=== PATIENT | female | born 1945 | race Caucasian/White ===

== ENCOUNTER 2019-10-18 11:35 | Inpatient (IN) | payer OTHER ==
[~2019-10-18] VITALS: Ht 160 cm; Wt 59.0 kg
[2019-10-18] MEDS ORDERED: PEPCID20 MG PO (12:16)
[2019-10-18] MEDS ORDERED: PROTONIX40 MG PO (12:16)
[2019-10-18] MEDS ORDERED: ATORVASTATIN CA40 MG PO (12:17)
[2019-10-18] MEDS ORDERED: LOTREL 10-20 M1 EACH PO (12:17)
--- NOTE | 2019-10-18 12:19 | NUR ---
PACIENTE REFIERE DOLOR ABDOMINAL, VOMITOS X1 DESDE JOSE MIGUEL LUEGO DE HACER INGERIDO ALIMENTOS. SE OBSERVA ALERTA, ORIENTADA X3, CONCIENTE. REFEIRE PADECER DE DIVERTICULOS.
--- NOTE | 2019-10-18 13:30 | NUR ---
PACIENTE ALERTA Y ORIENTADA X3 ES EVALUADA POR DR. MANUEL QUIEN ORDENA REALIZAR MUESTRA DE LABORATORIO CANALIZACION DE VENA ADMINISTRAR MEDICAMENTO Y AZEB CONTRASTE PARA CT ABDOMINO PELVICO, SE ORIENTA SOBRE ORDEN MEDICA SE EJECUTA ORDEN, SE ORIENTA A EMILY SOM CONTRASTE PARA CT.
--- NOTE | 2019-10-19 01:23 | NUR ---
SE ORIENTA PACIENTE SOBRE TRATAMIENTO MEDICO EL CUAL REFIERE ENTENDER, SE REALIZA MUESTRA DE SEFERINO DE FORMA ASEPTICA Y SE ADMINISTRA MEDICAMENTO SAUL ORDEN MEDICA. PACIENTE TOLERA INTERVENCION DEL RN.
--- NOTE | 2019-10-19 01:27 | NUR ---
SE ORIENTA PACIENTE SOBRE TRATAMIENTO MEDICO EL CUAL REFIERE REFIERE ENTENDER, SE ADMINISTRA MEDICAMENTO SAUL ORDEN MEDICA, EL PACIENTE TOLERA INTERVENCION DEL RN.
--- NOTE | 2019-10-19 07:59 | NUR ---
SE RECIBE PTE FEMENIA DE 74 YRS ALERTA CONCIENTE Y TRANQUILA EN CAMA CON BARANDAS ELEVADA. PTE PENDIENTE A MEDICO CONSULTOR LA CUAL SE MANTIENE NOTIFICADO DESDE EL TURNO ANTERIO Y SE LE DA SEGUIMIENTO. SE MANTIENE CON IVF PATENTE Y KWAN DE EDEMA.SE MANTIENE EN COMPANIA DE FAMILIAR.Y SE MANTIENE KWAN DE DOLOR. SE OBSERVA POR CAMBIOS.
== END 2019-11-05 19:30 | disposition home or self-care (01) | DRG 388 ==
LOC: ER 11:35 → SURG 10-19 11:27 → SEC-K 10-19 11:27 → SURG 10-19 15:56
PROVIDERS: ADMIT Colon & Rectal Surgery
PROC: BW21Y0Z Computerized Tomography (CT Scan) of Abdomen and Pelvis using Other Contrast, Unenhanced and Enhanced (ICD-10-PCS; 2019-10-19)
PROC: 3E0436Z Introduction of Nutritional Substance into Central Vein, Percutaneous Approach (ICD-10-PCS; 2019-10-19)
PROC: 02HV33Z Insertion of Infusion Device into Superior Vena Cava, Percutaneous Approach (ICD-10-PCS; 2019-10-20)
PROC: 4A033R1 Measurement of Arterial Saturation, Peripheral, Percutaneous Approach (ICD-10-PCS; 2019-10-24)
PROC: 4A12X4Z Monitoring of Cardiac Electrical Activity, External Approach (ICD-10-PCS; 2019-10-24)
PROC: 0W9J30Z Drainage of Pelvic Cavity with Drainage Device, Percutaneous Approach (ICD-10-PCS; principal; 2019-10-25)
DX: K56.690 Other partial intestinal obstruction (principal); K65.8 Other peritonitis; K57.21 Diverticulitis of large intestine with perforation and abscess with bleeding; J98.11 Atelectasis; K92.1 Melena; K63.2 Fistula of intestine; B96.29 Other Escherichia coli [E. coli] as the cause of diseases classified elsewhere; B96.1 Klebsiella pneumoniae [K. pneumoniae] as the cause of diseases classified elsewhere; B95.2 Enterococcus as the cause of diseases classified elsewhere; B96.6 Bacteroides fragilis [B. fragilis] as the cause of diseases classified elsewhere